=== PATIENT | male | born 1955 | race Caucasian/White ===

== ENCOUNTER 2023-03-08 11:17 | Day surgery (SDC) | payer MEDICARE, OTHER ==
[2023-03-08] MEDS ORDERED: LACTATED RINGERS 1,000 ML IV ONE ×3 (11:25→13:59)
[2023-03-08] MEDS ORDERED: PROPOFOL 500 MG/50 ML 500 MG/50 ML VIAL ONE (12:53)
--- NOTE | 2023-03-08 13:17 | ANESTHESIA ---
Pre-Anesthesia VS, & Labs - Diagnosis esophageal pain - Procedure egd Vital Signs: Temp Pulse Resp BP Pulse Ox O2 Flow Rate 36.7 C 92 18 141/79 H 96 03/08/23 11:25 03/08/23 11:25 03/08/23 11:25 03/08/23 11:25 03/08/23 11:25 Height: 6 ft Weight (kg): 68.9 kg Body Mass Index: 20.6 BMI Classification: Normal - NPO Last Fluid Intake: 0800, no meds this am Home Medications and Allergies Home Medications: Ambulatory Orders Albuterol Sulf [Ventolin Hfa Inhaler] 1 - 2 puffs INH Q4HR PRN 03/03/23 Atorvastatin Calcium 40 mg PO DAILY 03/03/23 Clopidogrel [Plavix] 75 mg PO DAILY 03/03/23 Formoterol Fumarate 20 mcg IH BID 03/03/23 Nicotine Polacrilex [Nicorette] 2 mg BC PRN PRN 03/03/23 Pantoprazole [Protonix] 40 mg PO BID 03/03/23 Revefenacin [Yupelri] 175 mcg IH DAILY 03/03/23 Sucralfate [Carafate] 1 tablet PO ACHS 03/03/23 Tamsulosin [Flomax] 0.8 mg PO DAILY 03/03/23 amLODIPine [Norvasc] 10 mg PO DAILY 03/03/23 buPROPion [Wellbutrin Sr] 150 mg PO BID 03/03/23 Albuterol Sulf [Ventolin Hfa Inhaler] 1 - 2 puffs INH Q4HR PRN 03/03/23 Atorvastatin Calcium 40 mg PO DAILY 03/03/23 Clopidogrel [Plavix] 75 mg PO DAILY 03/03/23 Formoterol Fumarate 20 mcg IH BID 03/03/23 Nicotine Polacrilex [Nicorette] 2 mg BC PRN PRN 03/03/23 Pantoprazole [Protonix] 40 mg PO BID 03/03/23 Revefenacin [Yupelri] 175 mcg IH DAILY 03/03/23 Sucralfate [Carafate] 1 tablet PO ACHS 03/03/23 Tamsulosin [Flomax] 0.8 mg PO DAILY 03/03/23 amLODIPine [Norvasc] 10 mg PO DAILY 03/03/23 buPROPion [Wellbutrin Sr] 150 mg PO BID 03/03/23 Allergies/Adverse Reactions: Allergies Allergy/AdvReac Type Severity Reaction Status Date / Time No Known Drug Allergies Allergy Verified 03/03/23 11:14 Anes History & Medical History - Anesthetic History Anesthesia Complications: reports: No previous complications Family history of Anesthesia Complications: Denies Family history of Malignant Hyperthermia: Denies - Medical History Cardiovascular: reports: Hypertension, High cholesterol Pulmonary: reports: COPD, Emphysema, Shortness of breath, Sleep apnea (BIPAP AT NIGHT), Other Gastrointestinal: reports: Hepatitis, Other Urinary: reports: Benign prostate hypertrophy Neuro: reports: CVA (HAS A LIMP AND DRAGS LEFT FOOT, NUMBNESS ON LEFT SIDE, TAKES PLAVIX) Musculoskeletal: reports: Chronic back pain Endocrine/Autoimmune: reports: None Skin: reports: None Smoking Status: Heavy tobacco smoker (DOWN TO 3 CIGS PER DAY , SINCE AGE 18) Psychosocial: reports: No issues indicated - Surgical History General: reports: Colonoscopy Eyes Ears Nose Throat (EENT): reports: Cataracts, Tonsil/Adenoidectomy Orthopedic: reports: Arthroscopic surgery Exam General: Alert Dental: WNL Mouth Openin Fingerbreadth Neck Mobility: Normal Mallampati classification: III Thyromental Distance: 4-6 cm Respiratory: Lungs clear Cardiovascular: Regular rate Plan Anesthesia Type: Total IV Consent for Procedure(s) Verified and Reviewed: Yes Code Status: Attempt Resuscitation ASA classification: 3-Severe systemic disease Is this case an emergency?: No
[2023-03-08] MEDS ORDERED: DIATRIZOATE MEGLU/DIATRIZO SOD 30 ML BOTTLE PO ONE ×2 (14:35→16:14)
[2023-03-08] MEDS ORDERED: iohexoL-300 100 ML VIAL ONE (14:35)
[2023-03-08 14:49] LABS: HCT - HEMATOCRIT 43.4 % (42.0-52.0); HGB - HEMOGLOBIN 14.2 g/dL (14.0-18.0); MEAN CORPUSCULAR HEMOGLOBIN 30.1 pg (27.0-31.0); MEAN CORPUSCULAR HGB CONC 32.7 g/dL (32.0-36.0); MEAN CORPUSCULAR VOLUME 91.9 fL (80.0-94.0); RED BLOOD COUNT 4.72 10^6/uL (4.70-6.10); RED CELL DISTRIBUTION WIDTH 14.4 % (12.0-15.0); WHITE BLOOD COUNT 9.9 x10^3/uL (4.8-10.8)
[2023-03-08 15:08] VITALS: BP 136/73; O2SAT 94
[2023-03-08 15:33] LABS: CALCIUM 9.4 mg/dL (8.5-10.3); CREATININE 0.9 mg/dL (0.6-1.3); POTASSIUM 4.7 mmol/L (3.5-4.5)
[2023-03-08] MEDS ORDERED: iohexoL-300 100 ML VIAL IVP ONE (16:13)
--- NOTE | 2023-03-08 17:52 | CT Report ---
PROCEDURE: Chest W INDICATIONS: esophageal mass CONTRAST: 100mL Omni 300 TECHNIQUE: After the administration of intravenous contrast, a CT scan of the chest was performed. Images were recorded and evaluated at appropriate window settings. Reformats: axial MIP of the chest, coronal and sagittal. For radiation dose reduction, the following was used: automated exposure control, adjustme nt of mA and/or kV according to patient size. COMPARISON: None. FINDINGS: Image quality: Excellent. Lungs and pleura: Severe bullous emphysema in the upper lobes with nodular scarring subpleural right lateral lung apex. There are linear atelectatic changes medial right lower lobe, caudal lingula, and posterior left lung base. No acute groundglass opacities. No pleural effusions. No pneumothorax. No suspicious pulmonary nodules which require follow up. Mediastinum: Heart size is normal. No pericardial effusion. There is enlargement of both main pulmona ry arteries from likely secondary pulmonary artery hypertension. Mild calcification of the aortic arc h and descending aorta. Low density subcarinal and right perihilar opacities, fluid collections versu s low-density adenopathy. Minor adenopathy precarinal region measuring 1.0 cm.. No mediastinal adenop athy by size criteria. Mild circumferential esophageal wall thickening beginning at the level of the ricardo. There is a prom inent esophageal wall thickening and irregular mucosal surface at the distal esophagus and extending to the GE junction for length of at least 4 cm. There is indistinct wall thickening involving the GE junction and gastric cardia below the level of the diaphragm. Overall length of suspicious mass is es timated to be about 6.5 cm. Chest wall and lower neck: Thyroid is unremarkable. No axillary or supraclavicular adenopathy by size . Bones: No suspicious bone lesions. Degenerative disc height loss and anterior endplate spurring at th e T8 level. Upper Abdomen: Dictated separately. IMPRESSION: Suspicious mass above and below the gastroesophageal junction most suggestive of neoplasm. There is low-density adenopathy likely in the mediastinum and right infrahilar region. Severe emphysema in the lungs and likely secondary pulmonary hypertension.. Reviewed by: Smiley Segura MD on 03/08/2023 5:50 PM PST Approved by: Smiley Segura MD on 03/08/2023 5:50 PM PST Station ID: [id number]
--- NOTE | 2023-03-08 18:04 | CT Report ---
PROCEDURE: Abdomen/Pelvis W INDICATIONS: esophageal mass CONTRAST: 100mL Omni 300 TECHNIQUE: After the administration of intravenous contrast, a CT scan of the abdomen and pelvis was performed. Images were recorded and evaluated at appropriate window settings. Reformats: coronal and sagittal. F or radiation dose reduction, the following was used: automated exposure control, adjustment of mA and /or kV according to patient size. COMPARISON: None. FINDINGS: Image quality: Excellent. Lung bases and heart: Dictated separately. Liver: Indistinct irregular hypodensity in the left hepatic lobe measuring 1 cm is not well evaluated on this study. Hypodensity in the inferior anterior segment 5 measuring roughly 0.8 cm. Question hyp odensity adjacent to the falciform ligament. A subcapsular subcentimeter hypodensity and more circums cribed hypodensity at the falciform ligament best seen on series 2 image 38 in the anterior segment I Vb. Gallbladder and biliary tree: The gallbladder is decompressed and contains a linear calcification at the fundus. No intrahepatic biliary dilatation. No common duct calcification or dilatation. Spleen: No splenomegaly. Pancreas: No pancreatic ductal dilation. Adrenals: Diffuse bilateral adrenal gland thickening, nonspecific. No focal nodularity. Kidneys and ureters: Symmetric enhancement. No hydronephrosis or nephrolithiasis. No solid mass or cy st requiring follow-up. Simple left anterior lower pole 4.3 cm parapelvic cyst Bowel and peritoneum: An irregular mass extends from the distal esophagus, through the GE junction in to the proximal stomach. There is wall thickening extending around the posterior gastric cardia. Ther e is immediately adjacent adenopathy or extra serosal extension of the tumor along the medial margin. Probable lymph node measures 2.2 x 2.0 cm. The remainder of the stomach is within normal limits. Sma ll bowel loops are normal caliber. No obstruction. Increased quantity of solid stool present in the c olon. Decompression of the descending colon and extensive diverticulosis sigmoid. Lymph nodes: An enlarged left periaortic lymph node measures 1.5 cm just below the level of the left renal vein. No other adenopathy. Vessels: Normal caliber IVC and aorta with moderate calcific aortic atherosclerosis. PELVIS Reproductive organs: Moderate prostatomegaly. Bladder: No abnormal wall thickening, accounting for underdistention. Pelvic lymph nodes: No pelvic adenopathy by size criteria. Bones: Probable bone island in the left posterior iliac ring. No other suspicious bone lesions. Other: Tiny bilateral fat-containing inguinal hernias. IMPRESSION: 1. Mass at the gastroesophageal junction extending into the proximal stomach with adenopathy and poss ible serosal extension along the medial margin. 2. Minor amount of retroperitoneal adenopathy is present. 3. Nonspecific bilateral adrenal gland thickening. In the setting of malignancy, metastases cannot be excluded. 4. Several indistinct scattered hepatic hypodensities can't be characterized due to small size. Alessandro nued attention on follow-up recommended. Reviewed by: Smiley Segura MD on 03/08/2023 6:03 PM PST Approved by: Smiley Segura MD on 03/08/2023 6:03 PM PST Station ID: [id number]
== END 2023-03-08 11:18 | disposition home or self-care (01) ==
LOC: SDS 11:17
PROVIDERS: ATTEND Surgery
PROC: 0DB68ZX Excision of Stomach, Via Natural or Artificial Opening Endoscopic, Diagnostic (ICD-10-PCS; 2023-03-08)
PROC: 0DB48ZX Excision of Esophagogastric Junction, Via Natural or Artificial Opening Endoscopic, Diagnostic (ICD-10-PCS; principal; 2023-03-08 13:00)
DX: C16.0 Malignant neoplasm of cardia (principal); K21.9 Gastro-esophageal reflux disease without esophagitis; K30 Functional dyspepsia; R63.4 Abnormal weight loss; F17.210 Nicotine dependence, cigarettes, uncomplicated; Z79.02 Long term (current) use of antithrombotics/antiplatelets; J44.9 Chronic obstructive pulmonary disease, unspecified; G47.33 Obstructive sleep apnea (adult) (pediatric); I69.354 Hemiplegia and hemiparesis following cerebral infarction affecting left non-dominant side; I10 Essential (primary) hypertension; J43.9 Emphysema, unspecified
CPT/HCPCS: 36415; 43239; 71260; 74177; 80048; 85027; J7120; Q9963; Q9967